=== PATIENT | male | born 1990 | race Caucasian/White ===

== ENCOUNTER 2016-12-11 13:16 | Emergency (ER) | payer BC ==
--- NOTE | ~2016-12-11 | CR169 ---
[facility]. [facility] A Service of [facility] & [facility] RADIOLOGY TEXT RESULTS PATIENT: NILAM SANCHEZ LOCATION: SED : [birth year] UNIT #: [id number] AGE: [address]: Moris Pike MD SEX: M ORDER DR: [id number] [address] [address] [id number] E MR#: [id number] Acc #: [id number] NAME: NILAM SANCHEZ : 1990 SEX: M STUDY DATE/TIME: 12/11/2016 13:51 UNIT: SED ROOM: STUDY DESCRIPTION: CR Knee 2 Views Lt Attending Physician: Moris Pike M.D. Ordering Physician: Moris Pike M.D. Primary Care Physician: No Primary Care Physician MEDICAL IMAGING REPORT This report is preliminary unless electronic signature is present. EXAM Two-view, left knee. HISTORY Injured knee stepping out of truck yesterday, knee pain and swelling. FINDINGS Two views of the left knee demonstrate small joint effusion. No definite fracture or dislocation. No loose body. IMPRESSION Suspected small joint effusion which may indicate internal derangement. If clinical symptoms persist follow up orthopedic evaluation and MRI scan may be warranted. No definite acute fracture. Dictated by... Mara Clemente M.D. THIS IS AN ELECTRONICALLY VERIFIED REPORT Mara Clemente M.D. at 12/12/2016 12:32 PM Cara TD: 12/12/2016 00:59 JOB #: [id number] MEDICAL IMAGING REPORT Page 1 of 1
[2016-12-11] MEDS ORDERED: ASPIRIN81 MG PO (13:32)
[2016-12-11] MEDS ORDERED: NAPROXEN (13:32)
== END 2016-12-11 14:54 | disposition home or self-care (01) ==
LOC: SED 13:16
DX: S86.912A Strain of unspecified muscle(s) and tendon(s) at lower leg level, left leg, initial encounter (principal); F17.210 Nicotine dependence, cigarettes, uncomplicated; Z79.82 Long term (current) use of aspirin; X58.XXXA Exposure to other specified factors, initial encounter
CPT/HCPCS: 29530; 73560; 99283